=== PATIENT | female | born 1990 | race Two or more races ===

== ENCOUNTER 2016-08-06 18:15 | Inpatient (IN) | payer BC, OTHER ==
[~2016-08-06] VITALS: Ht 162.6 cm; Wt 60.2 kg
[2016-08-06] MEDS ORDERED: HYDROmorphone 1 MG/ML, 1ML ONE ×2 (18:45→21:59)
[2016-08-06] MEDS ORDERED: HYDROmorphone 1 MG/ML, 1ML IM ONE (19:00)
[2016-08-06] MEDS ORDERED: ONDANSETRON 2MG/ML, 2ML ONE (21:59)
[2016-08-06] MEDS ORDERED: ONDANSETRON 2MG/ML, 2ML IVPush ONE (22:00)
[2016-08-06] MEDS ORDERED: HYDROmorphone 1 MG/ML, 1ML IV ONE (22:00)
[2016-08-06] MEDS ORDERED: DIAZEPAM 5 MG/ML, 2ML IV ONE (22:30)
[2016-08-06] MEDS ORDERED: DIAZEPAM 5 MG/ML, 2ML ONE (22:31)
[2016-08-07] MEDS ORDERED: BISACODYL 10 MG SUPP PR PRN
[2016-08-07] MEDS ORDERED: POLYETHYLENE GLYCOL 17 GM PACKET PO PRN
[2016-08-07] MEDS ORDERED: ONDANSETRON 2MG/ML, 2ML IVP PRN
[2016-08-07] MEDS ORDERED: ACETAMINOPHEN 325 MG TABLET PO PRN
[2016-08-07] MEDS: KETOROLAC 30 MG/1 ML IVPush SCH ×4 (00:53→18:07)
[2016-08-07] MEDS: MORPHINE SULFATE 4 MG/ML, 1ML IVPush PRN ×2 (00:54→10:36)
[2016-08-07 01:03] VITALS: BP 119/69
[2016-08-07] MEDS: METHOCARBAMOL 500 MG TABLET PO PRN ×3 (01:39→22:21)
[2016-08-07] MEDS: HEPARIN 5,000 UNITS/ML, 1ML SQ SCH ×3 (05:47→22:22)
[2016-08-07 07:09] VITALS: BP 115/65
[2016-08-07] MEDS: SODIUM CHLORIDE FLUSH 10ML SYR IVF SCH ×3 (07:49→22:22)
[2016-08-07] MEDS: SENNA/DOCUSATE TABLET PO SCH (07:49)
[2016-08-07] MEDS: DOCUSATE 100 MG CAPSULE PO SCH ×2 (12:06→22:21)
[2016-08-07 14:20] VITALS: BP 104/50
[2016-08-07 19:23] VITALS: BP 100/53
[2016-08-08] MEDS: KETOROLAC 30 MG/1 ML IVPush SCH ×3 (00:15→12:59)
[2016-08-08 01:06] VITALS: BP 90/46
[2016-08-08] MEDS: HEPARIN 5,000 UNITS/ML, 1ML SQ SCH (06:17)
[2016-08-08 07:16] VITALS: BP 92/50
[2016-08-08] MEDS: DOCUSATE 100 MG CAPSULE PO SCH (09:22)
[2016-08-08] MEDS: SENNA/DOCUSATE TABLET PO SCH (09:22)
[2016-08-08] MEDS: METHOCARBAMOL 500 MG TABLET PO PRN (09:22)
[2016-08-08] MEDS: SODIUM CHLORIDE FLUSH 10ML SYR IVF SCH (09:22)
[2016-08-08] MEDS ORDERED: HYDR-3240 PO (10:33)
[2016-08-08] MEDS ORDERED: METH500T7 PO (10:33)
[2016-08-08] MEDS ORDERED: OMEP-110 PO (10:33)
[2016-08-08] MEDS ORDERED: DOCU-30 PO (10:33)
[2016-08-08] MEDS ORDERED: METH4TAB2 PO (10:33)
== END 2016-08-08 13:30 | disposition home or self-care (01) | DRG 552 ==
LOC: ED 19:49 → EDIP 23:40 → 3NE 08-07 00:26 → DCLOUNGE 08-08 13:07
PROVIDERS: ADMIT Internal Medicine; ATTEND Internal Medicine
DX: M51.26 Other intervertebral disc displacement, lumbar region (principal); M51.27 Other intervertebral disc displacement, lumbosacral region; W19.XXXA Unspecified fall, initial encounter; Y92.322 Soccer field as the place of occurrence of the external cause; Y93.66 Activity, soccer; Y99.8 Other external cause status; Z98.890 Other specified postprocedural states
CPT/HCPCS: 72131; 72148; 96372; 96374; 96375; J1170; J1644; J1885; J2405; J3360; J7512